=== PATIENT | female | born 1975 | race Caucasian/White ===

== ENCOUNTER → 2017-10-22 | Outpatient (CLI) | payer BC ==
[~2017-10-22] MED LIST: ASCO100072 PO; BIOT300T2 PO; HYDR-3240 PO; HYDR-882 PO; IMMUNE BOOSTER PO; MULT-34 PO
== END | disposition home or self-care (01) ==
LOC: CFH 10:30
PROVIDERS: ATTEND Internal Medicine Hematology & Oncology
DX: N63.12 Unspecified lump in the right breast, upper inner quadrant (principal); C50.212 Malignant neoplasm of upper-inner quadrant of left female breast; N95.1 Menopausal and female climacteric states; Z90.13 Acquired absence of bilateral breasts and nipples